=== PATIENT | male | born 1985 | race Caucasian/White ===

== ENCOUNTER 2018-01-07 05:06 | Emergency (ER) | payer OTHER ==
[~2018-01-07] VITALS: Ht 172.7 cm; Wt 81.7 kg
[2018-01-07] MEDS ORDERED: HYDROXYZINE HCL25 M1 PO (05:24)
[2018-01-07 05:29] LABS: ABSOLUTE BASOPHILS 0.1 thou/uL (0.0-0.2); ABSOLUTE EOSINOPHILS 0.3 thou/uL (0.0-0.7); ABSOLUTE LYMPHOCYTES 2.7 thou/uL (0.8-5.3); ABSOLUTE MONOCYTES 1.3 thou/uL (0.0-1.2); EOSINOPHILS 2.2 %; HEMATOCRIT 44.6 % (42.0-52.0); HEMOGLOBIN 15.3 gm/dL (14.0-18.0); LYMPHOCYTES 21.7 %; MCH 29.2 pg (26.0-34.0); MCHC 34.4 g/dL (28.0-37.0); MCV 84.7 fL (80.0-100.0); MONOCYTES 10.3 %; MPV 8.7 fl. (7.2-11.1); NUCLEATED RBCS 0 /100WBC; PLATELET COUNT* 247 thou/uL (150-400); POLYS 64.8 %; RBC 5.26 mil/uL (4.50-6.00); RDW-CV 12.8 % (10.5-14.5); WBC 12.4 thou/uL (4.0-11.0)
[2018-01-07 05:44] LABS: ANION GAP 13 mmol/L (7-16); BUN 13 mg/dL (7-18); CALCIUM 9.1 mg/dL (8.5-10.1); CHLORIDE 105 mmol/L (98-107); CO2 24 mmol/L (21-32); CREATININE 1.5 mg/dL (0.6-1.3); GLUCOSE 123 mg/dL (70-99); POTASSIUM 3.3 mmol/L (3.5-5.1); SODIUM 142 mmol/L (136-145)
[2018-01-07 05:51] LABS: ALBUMIN 3.8 g/dL (3.4-5.0); ALKALINE PHOSPHATASE 71 U/L (46-116); LIPASE 230 U/L (73-393); SGOT 13 U/L (15-37); SGPT 35 U/L (30-65); TOTAL BILIRUBIN 0.4 mg/dL (<0.1-1.0); TOTAL PROTEIN 7.5 g/dL (6.4-8.2); TROPONIN-I LEVEL <0.06 ng/mL (<0.06)
[2018-01-07 07:08] VITALS: BP 110/66
--- NOTE | 2018-01-07 10:15 | EKG ---
[place] [address] ELECTROCARDIOGRAM REPORT Name: JANNETTE KILGORE Room: [facility]#: [id number] Admission: 01/07/18 Attend Phys: Discharge: 01/07/18 Date of : 81 Report #: [id number] THIS REPORT FOR: //name// [facility] ED Test Date: 2018-01-07 Test Time: 05:28:42 Pat Name: JANNETTE TA Department: Room: Gender: M Director Of [employer]: FIORELLA : 1985 Requested By: Kendall Chou Order Number: [id number] MD: Neptali Wagner Measurements Intervals [place] Rate: 115 P: 60 UT: 153 QRS: 54 QRSD: 94 T: 48 QT: 323 QTc: 447 Interpretive Statements Sinus tachycardia Abnormal inferior Q waves No previous ECG available for comparison Electronically Signed On 01-07-2018 10:14:53 CDT by Neptali Wagner [email or web address] <ELECTRONICALLY SIGNED> By: Savana Wagner MD, [facility] 01/07/18 1014 [id number] 7 Savana Wagner MD, FACC /EPI
== END 2018-01-07 07:08 | disposition home or self-care (01) ==
LOC: M.ERS 05:06
PROVIDERS: Emergency Medicine Emergency Medical Services
DX: R55 Syncope and collapse (principal); J45.909 Unspecified asthma, uncomplicated; F41.9 Anxiety disorder, unspecified; Z91.013 Allergy to seafood